=== PATIENT | female | born 1965 | race Caucasian/White ===

== ENCOUNTER 2020-06-05 13:14 | Emergency (ER) | payer OTHER ==
[~2020-06-05] VITALS: Ht 162.6 cm; Wt 49.9 kg
[2020-06-05] MEDS ORDERED: DOCU LIQUI50 MG/5 ML PO (13:53)
[2020-06-05] MEDS ORDERED: NORCO 5-325 TA1 EACH PO (14:46)
== END 2020-06-05 15:20 | disposition home or self-care (01) ==
LOC: ED 13:14
DX: S52.615A Nondisplaced fracture of left ulna styloid process, initial encounter for closed fracture (principal); S52.502A Unspecified fracture of the lower end of left radius, initial encounter for closed fracture; X50.9XXA Other and unspecified overexertion or strenuous movements or postures, initial encounter; Z85.3 Personal history of malignant neoplasm of breast; Z88.2 Allergy status to sulfonamides; Z88.8 Allergy status to other drugs, medicaments and biological substances
CPT/HCPCS: 29125; 73110; 99283-25